=== PATIENT | female | born 1995 | race Caucasian/White ===

== ENCOUNTER 2018-10-12 16:09 | Emergency (ER) | payer BC ==
[2018-10-12 16:22] VITALS: BP 112/71; PULSE 115; TEMP 97.5; BMI 16.9
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
== END 2018-10-12 18:02 | disposition left against medical advice (07) ==
LOC: JERFT 16:09
PROC: 0HQ1XZZ Repair Face Skin, External Approach (ICD-10-PCS; principal; 2018-10-12)
DX: S01.112A Laceration without foreign body of left eyelid and periocular area, initial encounter (principal); H11.32 Conjunctival hemorrhage, left eye; V18.0XXA Pedal cycle driver injured in noncollision transport accident in nontraffic accident, initial encounter; Y92.488 Other paved roadways as the place of occurrence of the external cause; Y93.55 Activity, bike riding; Y99.8 Other external cause status
CPT/HCPCS: 99281-25